=== PATIENT | female | born 1935 | race Caucasian/White ===

== ENCOUNTER → 2017-03-15 | Outpatient (CLI) | payer MEDICARE, BC ==
--- NOTE | 2017-03-15 22:08 | US ---
EXAMINATION TYPE: US thyroid st tissue head/neck DATE OF EXAM: 03/15/2017 3:06 PM COMPARISON: NONE CLINICAL HISTORY: 82-year-old female E04.1 Thyroid nodule. TECHNIQUE: Multiple sonographic images of the thyroid gland are obtained. FINDINGS: GLAND SIZE: Right Lobe: 4.8 x 2.0 x 2.3 cm Overall Parenchyma: heterogenous Left Lobe: 4.0 x 1.4 x 1.2 cm Overall Parenchyma: heterogeneous Isthmus Thickness: 0.7 cm NODULES RIGHT: # of nodules measured on right: 3 of multiple nodules 1. 0.4 X 0.3 x 0.4 cm cyst at the midpole. Prior size: not seen 2. 0.5 x 0.7 x 0.5cm hyperechoic solid nodule at the mid lower pole with well-defined margins. . Thi s nodule is wider than tall and shows no intranodular vascularity. Prior size: NA 3. 0.3 X 0.5 x 0.5 cm hyperechoic solid nodule at the lateral lower pole with well-defined margins. This nodule is wide as is tall and shows no intranodular vascularity. Prior size: NA 4. The previously seen 1.4 and 1.5 cm nodules are no longer identified. AIRLINE HOSTESS NOTES: Inferior pole/Right isthmus is nodular in appearance but a discrete nodule is not seen at this time in longitudinal view. LEFT: # of nodules measured on left: 4 of multiple nodules 1. 0.8 X 0.6 x 0.7 cm hypoechoic mixed nodule at the upper pole with well-defined margins. This no dule is taller than wide and shows intranodular vascularity. Prior size: 0.8 x 0.7 x 0.7 cm 2. 0.7 X 0.5 x 0.6 cm hyperechoic solid nodule with a coarse calcifications. This nodule is taller t mariano wide and shows no intranodular vascularity. Prior size: 0.9 x 0.7 x 0.5 cm 3. 0.7 X 0.7 x 0.4 cm hypoechoic solid nodule at the mid lateral pole with well-defined margins. Th is nodule is wider than tall and shows no intranodular vascularity. Prior size: NA 4. 0.9 X 0.7 x 0.6 cm with mixed solid and cystic nodule at the lower pole with well-defined margins . This nodule is wider than tall and shows no intranodular vascularity. Prior size: 0.7 x 0.7 x 0.7 cm ISTHMUS: # of nodules measured in the isthmus: 0 Bilateral neck scanned, no evidence of lymphadenopathy. IMPRESSION: 1. Multinodular thyroid gland. 2. Three subcentimeter nodules on the right appear to be new, one of which is a cyst. The previous 1. 4 and 1.5 cm right sided nodules are not apparent on the current study. 3. On the left, there is a new 7 mm solid nodule and a mixed lower pole nodule now measures 9 mm vers us 7 mm, previously. The other 2 subcentimeter nodules are stable.
== END ==
LOC: RADUSWWP 14:10
PROVIDERS: ATTEND Otolaryngology
DX: E04.2 Nontoxic multinodular goiter (principal)
CPT/HCPCS: 76536

== ENCOUNTER 2017-06-16 16:05 | Emergency (ER) | payer MEDICARE, BC ==
[2017-06-16 16:15] VITALS: TEMP 97.8
[2017-06-16] MEDS ORDERED: SODIUM CHLORIDE 0.9% 500 ML IV STA (16:40)
--- NOTE | 2017-06-16 16:43 | ED ---
General Adult HPI - General Chief complaint: Recheck/Abnormal Lab/Rx Stated complaint: low blood pressure-sent by Time Seen by Provider: 06/16/17 16:29 Source: patient, RN notes reviewed Mode of arrival: ambulatory Limitations: no limitations - History of Present Illness Initial comments: 82-year-old female who presents emergency room today with chief complaint of cough congestion over the last week and a half. She does admit that she began having some clear rhinorrhea. She states that her last for 5 days she's had some cough congestion that's been having some yellow sputum production. Patient states that she has begun feeling somewhat rundown. She states that she has had decreased energy. She states she noticed her blood pressure was low at home. She states she does take blood pressure medication of lisinopril. She denies any other complaints or symptoms at this time. Patient denies any recent fever, chills, shortness of breath, chest pain, back pain, abdominal pain , nausea or vomiting, numbness or tingling, dysuria or hematuria, constipation or diarrhea, headaches or visual changes, or any other complaints. - Related Data Home Medications Medication Instructions Recorded Confirmed Aspirin EC [Ecotrin Low Dose] 81 mg PO DAILY 08/09/16 06/16/17 Levothyroxine Sodium [Tirosint] 50 mcg PO DAILY 08/09/16 06/16/17 Lisinopril [Zestril] 10 mg PO DAILY 08/09/16 06/16/17 Biotin 10,000 mcg PO DAILY 06/16/17 06/16/17 Cholecalciferol (Vitamin D3) 10,000 unit PO DAILY 06/16/17 06/16/17 [Vitamin D3] Propylene Glycol/Peg 400/Pf 1 drop BOTH EYES BID 06/16/17 06/16/17 [Systane 0.3-0.4% Eye Drops] Previous Rx's Medication Instructions Recorded Albuterol Inhaler [Ventolin Hfa 1 - 2 puff INHALATION Q4-6H PRN #1 06/16/17 Inhaler] inhaler Amoxicillin/Potassium Clav 1 each PO Q12HR #20 tab 06/16/17 [Augmentin 875-125 Tablet] Allergies Allergy/AdvReac Type Severity Reaction Status Date / Time mold Allergy Itching Verified 06/16/17 16:57 nickel Allergy Rash/Hives Verified 06/16/17 16:57 house dust AdvReac Wheezing Verified 06/16/17 16:15 thimerosal AdvReac Migraine/Muscle Verified 06/16/17 16:15 Aches Preservative in eye drops AdvReac Migraine/Muscle Uncoded 06/16/17 16:59 Aches Review of Systems ROS Statement: Those systems with pertinent positive or pertinent negative responses have been documented in the HPI. ROS Other: All systems not noted in ROS Statement are negative. 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 eye surgery at [facility], vertigo History of Any Multi-Drug Resistant Organisms: None Reported Past Surgical History: Cholecystectomy, Hysterectomy, Tonsillectomy Additional Past Surgical History / Comment(s): bilateral mastectomy, bilat. cataract removed Past Anesthesia/Blood Transfusion Reactions: No Reported Reaction Past Psychological History: PTSD Smoking Status: Never smoker Past Alcohol Use History: Occasional Past Drug Use History: None Reported - Past Family History Father Family Medical History: Coronary Artery Disease (CAD) Brother(s) Family Medical History: CVA/TIA Mother Additional Family Medical History / Comment(s): [place] Dx General Exam Limitations: no limitations Course Vital Signs 06/16/17 06/16/17 06/16/17 16:12 16:37 16:55 Temperature 97.8 F Pulse Rate 71 Pulse Rate [ 49 L Apical] Respiratory 20 Rate Blood Pressure 171/76 141/63 O2 Sat by Pulse 96 Oximetry 06/16/17 06/16/17 18:22 19:05 Temperature Pulse Rate 83 87 Pulse Rate [ Apical] Respiratory 16 18 Rate Blood Pressure 142/58 O2 Sat by Pulse 98 98 Oximetry EKG Findings - EKG Comments: EKG Findings:: EKG formed at 1641: Shows sinus rhythm with a sinus arrhythmia at 81 beats per minute. ME interval is 218. QRS is 84. QT/QTC is 506/587. There is no acute ST change. There is a prolonged QT. Second EKG performed at 1704: Shows a sinus rhythm with sinus arrhythmia at 86 beats per minute. ME interval is 210. QRS is 80. QT/QTc is 400/450. No acute ST changes. Medical Decision Making - Medical Decision Making Patient's labs reviewed and are unremarkable. Case was discussed with attending physician who saw patient at bedside. Patient's EKG shows sinus arrhythmia no acute changes. Patient feeling well here in the emergency room does admit to cough congestion. Chest x-rays negative for any acute abnormalities. Patient will be placed on antibiotics cover for a bronchitis infection." The family doctor over the next 2 days. Advised return here to the emergency room if any symptoms increase or worsen or for any other concerns. - Lab Data Result diagrams: 06/16/17 16:55 06/16/17 16:55 Lab Results 06/16/17 06/16/17 06/16/17 Range/Units 16:55 16:55 16:55 WBC 5.8 (3.8-10.6) k/uL RBC 4.20 (3.80-5.40) m/uL Hgb 13.3 (11.4-16.0) gm/dL Hct 40.0 (34.0-46.0) % MCV 95.2 (80.0-100.0) fL MCH 31.6 (25.0-35.0) pg MCHC 33.2 (31.0-37.0) g/dL RDW 14.2 (11.5-15.5) % Plt Count 166 (150-450) k/uL Neutrophils % 50 % Lymphocytes % 38 % Monocytes % 6 % Eosinophils % 3 % Basophils % 0 % Neutrophils # 2.9 (1.3-7.7) k/uL Lymphocytes # 2.2 (1.0-4.8) k/uL Monocytes # 0.3 (0-1.0) k/uL Eosinophils # 0.2 (0-0.7) k/uL Basophils # 0.0 (0-0.2) k/uL PT (9.0-12.0) sec INR (<1.2) APTT (22.0-30.0) sec Sodium 139 (137-145) mmol/L Potassium 4.7 (3.5-5.1) mmol/L Chloride 105 (98-107) mmol/L Carbon Dioxide 25 (22-30) mmol/L Anion Gap 9 mmol/L BUN 28 H (7-17) mg/dL Creatinine 1.00 (0.52-1.04) mg/dL Est GFR (MDRD) Af Amer >60 (>60 ml/min/1.73 sqM) Est GFR (MDRD) Non-Af 53 (>60 ml/min/1.73 sqM) Glucose 77 (74-99) mg/dL Calcium 9.6 (8.4-10.2) mg/dL Magnesium 1.9 (1.6-2.3) mg/dL Total Bilirubin 0.4 (0.2-1.3) mg/dL AST 25 (14-36) U/L ALT 26 (9-52) U/L Alkaline Phosphatase 63 (38-126) U/L Total Creatine Kinase 111 (30-135) U/L CK-MB (CK-2) <0.2 (0.0-2.4) ng/mL CK-MB (CK-2) Rel Index Troponin I <0.012 (0.000-0.034) ng/mL Total Protein 6.5 (6.3-8.2) g/dL Albumin 4.0 (3.5-5.0) g/dL Urine Color Urine Appearance (Clear) Urine pH (5.0-8.0) Ur Specific [place] (1.001-1.035) Urine Protein (Negative) Urine Glucose (UA) (Negative) Urine Ketones (Negative) Urine Blood (Negative) Urine Nitrite (Negative) Urine Bilirubin (Negative) Urine Urobilinogen (<2.0) mg/dL Ur Leukocyte Esterase (Negative) Urine RBC (0-5) /hpf Urine WBC (0-5) /hpf Urine WBC Clumps (None) /hpf Urine Bacteria (None) /hpf 06/16/17 06/16/17 Range/Units 16:55 18:24 WBC (3.8-10.6) k/uL RBC (3.80-5.40) m/uL Hgb (11.4-16.0) gm/dL Hct (34.0-46.0) % MCV (80.0-100.0) fL MCH (25.0-35.0) pg MCHC (31.0-37.0) g/dL RDW (11.5-15.5) % Plt Count (150-450) k/uL Neutrophils % % Lymphocytes % % Monocytes % % Eosinophils % % Basophils % % Neutrophils # (1.3-7.7) k/uL Lymphocytes # (1.0-4.8) k/uL Monocytes # (0-1.0) k/uL Eosinophils # (0-0.7) k/uL Basophils # (0-0.2) k/uL PT 10.2 (9.0-12.0) sec INR 1.0 (<1.2) APTT 21.6 L (22.0-30.0) sec Sodium (137-145) mmol/L Potassium (3.5-5.1) mmol/L Chloride (98-107) mmol/L Carbon Dioxide (22-30) mmol/L Anion Gap mmol/L BUN (7-17) mg/dL Creatinine (0.52-1.04) mg/dL Est GFR (MDRD) Af Amer (>60 ml/min/1.73 sqM) Est GFR (MDRD) Non-Af (>60 ml/min/1.73 sqM) Glucose (74-99) mg/dL Calcium (8.4-10.2) mg/dL Magnesium (1.6-2.3) mg/dL Total Bilirubin (0.2-1.3) mg/dL AST (14-36) U/L ALT (9-52) U/L Alkaline Phosphatase (38-126) U/L Total Creatine Kinase (30-135) U/L CK-MB (CK-2) (0.0-2.4) ng/mL CK-MB (CK-2) Rel Index Troponin I (0.000-0.034) ng/mL Total Protein (6.3-8.2) g/dL Albumin (3.5-5.0) g/dL Urine Color Light Yellow Urine Appearance Clear (Clear) Urine pH 5.5 (5.0-8.0) Ur Specific [place] 1.004 (1.001-1.035) Urine Protein Negative (Negative) Urine Glucose (UA) Negative (Negative) Urine Ketones Negative (Negative) Urine Blood Negative (Negative) Urine Nitrite Negative (Negative) Urine Bilirubin Negative (Negative) Urine Urobilinogen <2.0 (<2.0) mg/dL Ur Leukocyte Esterase Small H (Negative) Urine RBC <1 (0-5) /hpf Urine WBC 4 (0-5) /hpf Urine WBC Clumps Rare H (None) /hpf Urine Bacteria Occasional H (None) /hpf Disposition Clinical Impression: Acute bronchitis Disposition: HOME SELF-CARE Condition: Good Instructions: Acute Bronchitis (ED) Additional Instructions: Please use medication as discussed. Please follow-up with family doctor in the next 2 days of symptoms have not improved. Please return to emergency room if the symptoms increase or worsen or for any other concerns. Prescriptions: Albuterol Inhaler [Ventolin Hfa Inhaler] 1 - 2 puff INHALATION Q4-6H PRN #1 inhaler PRN Reason: Cough Amoxicillin/Potassium Clav [Augmentin 875-125 Tablet] 1 each PO Q12HR #20 tab Referrals: Lemuel Gray III, MD [Primary Care Provider] - 1-2 days Time of Disposition: 19:25
[2017-06-16 17:11] LABS: Basophils % (A) 0 %; CH 31.9; CHCM 33.6; Eosinophils # (A) 0.2 k/uL (0-0.7); Eosinophils % (A) 3 %; HGB 13.3 gm/dL (11.4-16.0); Luc # (Auto) 0.15; Luc % (Auto) 3; Lymphocytes # (A) 2.2 k/uL (1.0-4.8); Lymphocytes % (A) 38 %; MCH 31.6 pg (25.0-35.0); MCHC 33.2 g/dL (31.0-37.0); MCV 95.2 fL (80.0-100.0); Mean Platelet Volume 8.4; Monocytes # (A) 0.3 k/uL (0-1.0); Monocytes % (A) 6 %; Neutrophils # (A) 2.9 k/uL (1.3-7.7); Neutrophils % (A) 50 %; RDW 14.2 % (11.5-15.5); WBC 5.8 k/uL (3.8-10.6); WBC (Perox) 5.64
[2017-06-16 17:20] LABS: ALT 26 U/L (9-52); AST 25 U/L (14-36); Alkaline Phosphatase 63 U/L (38-126); Anion Gap 9 mmol/L; Blood Urea Nitrogen 28 mg/dL (7-17); Calcium 9.6 mg/dL (8.4-10.2); Carbon Dioxide 25 mmol/L (22-30); Chloride 105 mmol/L (98-107); Glucose 77 mg/dL (74-99); Magnesium 1.9 mg/dL (1.6-2.3); Non-African American GFR(MDRD) 53 (>60 ml/min/1.73 sqM); Potassium 4.7 mmol/L (3.5-5.1); Sodium 139 mmol/L (137-145); Total Bilirubin 0.4 mg/dL (0.2-1.3); Total Protein 6.5 g/dL (6.3-8.2)
[2017-06-16 17:29] LABS: Prothrombin Time 10.2 sec (9.0-12.0)
[2017-06-16 17:32] LABS: Creatine Kinase 111 U/L (30-135)
[2017-06-16 17:34] LABS: Partial Thromboplastin Time 21.6 sec (22.0-30.0)
[2017-06-16 17:45] LABS: Creatine Kinase MB <0.2 ng/mL (0.0-2.4); Troponin I <0.012 ng/mL (0.000-0.034)
[2017-06-16 18:32] LABS: Appearance,Urine Clear (Clear); Bacteria,Urine Occasional /hpf; Bilirubin,Urine Negative (Negative); Glucose,Urine (UA) Negative (Negative); Ketones,Urine Negative (Negative); Leukocyte Esterase,Urine Small (Negative); Nitrite,Urine Negative (Negative); PH, Urine 5.5 (5.0-8.0); Particle Count 1335; Protein,Urine Negative (Negative); RBC,Urine <1 /hpf (0-5); Specific Gravity,Urine 1.004 (1.001-1.035); UA Billing (MACRO vs. MICRO) MICRO; Urobilinogen,Urine <2.0 mg/dL (<2.0); WBC,Urine 4 /hpf (0-5)
[2017-06-16 19:06] VITALS: BP 142/58; PULSE 87; RESP 18
--- NOTE | 2017-06-16 20:51 | XR ---
EXAMINATION TYPE: XR chest 2V DATE OF EXAM: 06/16/2017 COMPARISON: 08/09/2016 HISTORY: Respiratory infection TECHNIQUE: Frontal and lateral views of the chest are obtained. FINDINGS: There is no heart failure nor confluent pneumonic infiltrate. Thoracic aorta is atheromato us. There are chest leads. There is no pleural effusion. There is spurring in the thoracic spine. The re are clips apparently from left mastectomy. IMPRESSION: No active cardiopulmonary disease. Atheromatous aorta. No change.
== END 2017-06-16 19:37 | disposition home or self-care (01) ==
LOC: EC 16:05
DX: J20.9 Acute bronchitis, unspecified (principal); I10 Essential (primary) hypertension; E07.9 Disorder of thyroid, unspecified; M19.90 Unspecified osteoarthritis, unspecified site; Z87.01 Personal history of pneumonia (recurrent); Z86.73 Personal history of transient ischemic attack (TIA), and cerebral infarction without residual deficits; Z79.82 Long term (current) use of aspirin; Z79.899 Other long term (current) drug therapy; Z91.048 Other nonmedicinal substance allergy status
CPT/HCPCS: 36415; 71020; 80053; 81001; 82550; 82553; 83735; 84484; 85025; 85610; 85730; 93005; 96360; 99283

== ENCOUNTER → 2017-10-12 | Outpatient (CLI) | payer MEDICARE, BC ==
--- NOTE | 2017-10-12 14:14 | US ---
EXAMINATION TYPE: US thyroid st tissue head/neck DATE OF EXAM: 10/12/2017 COMPARISON: Thyroid ultrasound March 15, 2017 CLINICAL HISTORY: E04.1 Thyroid Nodule. F/U GLAND SIZE: Right Lobe: 3.8 x 1.5 x 1.8 cm Overall Parenchyma: Grossly heterogeneous Left Lobe: 3.9 x 1.5 x 1.2 cm Overall Parenchyma: Grossly heterogeneous Isthmus Thickness: 0.6 cm NODULES RIGHT: # of nodules measured on right: 0 LEFT: # of nodules measured on left: 1 1. 0.9 X 0.8 x 0.7 cm calcified nodule at the upper pole with poorly defined margins; This nodule is wider than tall and shows no intranodular vascularity. Prior size: 0.7 x 0.5 x 0.6 cm ISTHMUS: # of nodules measured in the isthmus: 0 Bilateral neck scanned, no evidence of lymphadenopathy. Bilateral grossly heterogeneous thyroid favor ed over multiple nodules/ hypervascularity bilateral/ calcified nodule on left Heterogeneous hypervascular slightly small thyroid gland redemonstrated with small nodule left thyroi d is once again marked by technologist. IMPRESSION: Overall stable findings, markedly heterogeneous hypervascular slightly small thyroid gland without ne w suspicious greater than 1 cm solid or cystic nodule.
== END | disposition home or self-care (01) ==
LOC: RADUSWWP 13:34
PROVIDERS: ATTEND Otolaryngology
DX: E04.1 Nontoxic single thyroid nodule (principal)
CPT/HCPCS: 76536

== ENCOUNTER 2018-06-07 08:29 | Emergency (ER) | payer MEDICARE, BC ==
[2018-06-07] MEDS ORDERED: SODIUM CHLORIDE 0.9% 500 ML IV STA (08:32)
--- NOTE | 2018-06-07 08:40 | ED ---
General Adult HPI - General Stated complaint: poss TIA Time Seen by Provider: 06/07/18 08:29 Source: RN notes reviewed - History of Present Illness Initial comments: This is an 83-year-old female who presents to the emergency department with sudden onset of right sided facial droop slurred speech and right-sided paralysis. Patient states she was up before that walking around taking her medicines and she was fine and all of a sudden she didn't feel right and then she slowly fell to the floor. When EMS arrived she had no movement of the right arm or right leg and she had significant slurred speech and facial droop on the right. Patient denies any headache. Patient states she had a little bit of chest pressure earlier but it is gone now. Patient denies any difficulty breathing or shortness of breath. Patient denies any abdominal pain patient denies any nausea or vomiting. Patient does state that she is speech to be slurred and her right side of her body is weaker. Patient denies any other symptoms at this time. - Related Data Home Medications Medication Instructions Recorded Confirmed Aspirin EC [Ecotrin Low Dose] 81 mg PO DAILY 08/09/16 06/07/18 Levothyroxine Sodium [Tirosint] 50 mcg PO DAILY 08/09/16 06/07/18 Lisinopril [Zestril] 10 mg PO DAILY 08/09/16 06/07/18 Fluocinonide 0.05% [Lidex 0.05% 15 applic TOPICAL DAILY 06/07/18 06/07/18 cream] Hydrocortisone Cream 1 applic TOPICAL BID 06/07/18 06/07/18 [Hydrocortisone 2.5% Cream] Ketoconazole 2% Cream [Nizoral 2%] 1 applic TOPICAL DAILY 06/07/18 06/07/18 Testosterone [Androgel 1.62% Gel 1 packet TOPICAL DIRECTED 06/07/18 06/07/18 Packet] Allergies Allergy/AdvReac Type Severity Reaction Status Date / Time mold Allergy Itching Verified 06/07/18 09:46 nickel Allergy Rash/Hives Verified 06/07/18 09:46 brimonidine AdvReac Unknown Verified 06/07/18 09:46 difluprednate AdvReac Unknown Verified 06/07/18 09:46 house dust AdvReac Wheezing Verified 06/07/18 09:46 Dnzanub-Fbr-Oya Reductase AdvReac Unknown Verified 06/07/18 09:46 Inhibitor thimerosal AdvReac Migraine/Muscle Verified 06/07/18 09:46 Aches Preservative in eye drops AdvReac Migraine/Muscle Uncoded 06/07/18 09:00 Aches Review of Systems ROS Statement: Those systems with pertinent positive or pertinent negative responses have been documented in the HPI. ROS Other: All systems not noted in ROS Statement are negative. 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 eye surgery at [facility], vertigo History of Any Multi-Drug Resistant Organisms: None Reported Past Surgical History: Cholecystectomy, Hysterectomy, Tonsillectomy Additional Past Surgical History / Comment(s): bilateral mastectomy, bilat. cataract removed Past Anesthesia/Blood Transfusion Reactions: No Reported Reaction Past Psychological History: PTSD Smoking Status: Never smoker Past Alcohol Use History: Occasional Past Drug Use History: None Reported - Past Family History Father Family Medical History: Coronary Artery Disease (CAD) Brother(s) Family Medical History: CVA/TIA Mother Additional Family Medical History / Comment(s): [place] Dx General Exam - General Exam Comments Initial Comments: GENERAL: Patient is well-developed and well-nourished. Patient is nontoxic and well- hydrated and is in no acute distress. ENT: Neck is soft and supple. No significant lymphadenopathy is noted. Oropharynx is clear. Moist mucous membranes. Neck has full range of motion without eliciting any pain. There is no thyroid enlargement and no masses were felt. EYES: The sclera were anicteric and conjunctiva were pink and moist. Extraocular movements were intact and pupils were equal round and reactive to light. Eyelids were unremarkable. PULMONARY: Unlabored respirations. Good breath sounds bilaterally. No audible rales rhonchi or wheezing was noted. CARDIOVASCULAR: There is a regular rate and rhythm without any murmurs gallops or rubs. Femoral pulses are equal bilaterally ABDOMEN: Soft and nontender with normal bowel sounds. No palpable organomegaly was noted. There is no palpable pulsatile mass. SKIN: Skin is clear with no lesions or rashes and otherwise unremarkable. NEUROLOGIC: Patient is alert and oriented x3. Patient has obvious right-sided facial droop and slurred speech. 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 Patient is able to bend her knee slightly on the right and only has slight plantar and dorsiflexion when compared to the left. MUSCULOSKELETAL: Normal extremities with adequate strength and full range of motion. No lower extremity swelling or edema. No calf tenderness. LYMPHATICS: No significant lymphadenopathy is noted PSYCHIATRIC: Normal psychiatric evaluation. Normal interpersonal interactions appears functionally intact in deals appropriately with others. No signs of depression. No signs of anxiety. No delusions. No hallucinations. Course Vital Signs 06/07/18 06/07/18 06/07/18 08:30 08:45 09:00 Temperature 97.0 F L Pulse Rate 106 H 109 H 108 H Respiratory 16 16 16 Rate Blood Pressure 157/74 167/74 138/60 O2 Sat by Pulse 99 100 99 Oximetry 06/07/18 06/07/18 09:15 09:30 Temperature Pulse Rate 104 H 107 H Respiratory 16 16 Rate Blood Pressure 152/65 135/61 O2 Sat by Pulse 100 98 Oximetry Medical Decision Making - Medical Decision Making EKG shows sinus tachycardia at 106 bpm VA interval is 216 QRS is 106 QT interval 344 QTC is 456. Patient's EKG shows no acute abnormalities. I compared this EKG with old EKG and there is no obvious changes Patient's CT of the brain and the CTA of the head neck. No abnormalities are seen on the CT of the brain. The neuro interventional was called and the neuro interventional states he wanted TPA and TPA was given to the patient after her consent. Patient was in agreement with going to [facility]. After all arrangements were made to go to [facility] daughter convince patient to go to [facility] the neuro interventional states at that point got on the robot and try to convince the patient to go to [facility] which she wanted to do what her daughter recommended. So we are now transferring the patient to [facility]. - Lab Data Result diagrams: 06/07/18 08:30 06/07/18 08:30 Lab Results 06/07/18 06/07/18 06/07/18 Range/Units 08:30 08:30 08:30 WBC 10.0 (3.8-10.6) k/uL RBC 4.46 (3.80-5.40) m/uL Hgb 13.3 (11.4-16.0) gm/dL Hct 42.3 (34.0-46.0) % MCV 94.7 (80.0-100.0) fL MCH 29.7 (25.0-35.0) pg MCHC 31.4 (31.0-37.0) g/dL RDW 13.5 (11.5-15.5) % Plt Count 182 (150-450) k/uL Neutrophils % 47 % Lymphocytes % 45 % Monocytes % 3 % Eosinophils % 2 % Basophils % 0 % Neutrophils # 4.7 (1.3-7.7) k/uL Lymphocytes # 4.5 (1.0-4.8) k/uL Monocytes # 0.3 (0-1.0) k/uL Eosinophils # 0.2 (0-0.7) k/uL Basophils # 0.0 (0-0.2) k/uL PT (9.0-12.0) sec INR (<1.2) APTT (22.0-30.0) sec Sodium 139 (137-145) mmol/L Potassium 4.0 (3.5-5.1) mmol/L Chloride 109 H (98-107) mmol/L Carbon Dioxide 20 L (22-30) mmol/L Anion Gap 10 mmol/L BUN 17 (7-17) mg/dL Creatinine 1.03 (0.52-1.04) mg/dL Est GFR (CKD-EPI)AfAm 59 (>60 ml/min/1.73 sqM) Est GFR (CKD-EPI)NonAf 51 (>60 ml/min/1.73 sqM) Glucose 135 H (74-99) mg/dL POC Glucose (mg/dL) (75-99) mg/dL POC Glu Veterinarian Small Animal ID Calcium 9.6 (8.4-10.2) mg/dL Total Bilirubin 0.6 (0.2-1.3) mg/dL AST 27 (14-36) U/L ALT 27 (9-52) U/L Alkaline Phosphatase 72 (38-126) U/L Total Creatine Kinase 80 (30-135) U/L CK-MB (CK-2) 1.6 (0.0-2.4) ng/mL CK-MB (CK-2) Rel Index 2.0 Troponin I 0.039 H* (0.000-0.034) ng/mL Total Protein 6.3 (6.3-8.2) g/dL Albumin 3.9 (3.5-5.0) g/dL 06/07/18 06/07/18 Range/Units 08:30 08:30 WBC (3.8-10.6) k/uL RBC (3.80-5.40) m/uL Hgb (11.4-16.0) gm/dL Hct (34.0-46.0) % MCV (80.0-100.0) fL MCH (25.0-35.0) pg MCHC (31.0-37.0) g/dL RDW (11.5-15.5) % Plt Count (150-450) k/uL Neutrophils % % Lymphocytes % % Monocytes % % Eosinophils % % Basophils % % Neutrophils # (1.3-7.7) k/uL Lymphocytes # (1.0-4.8) k/uL Monocytes # (0-1.0) k/uL Eosinophils # (0-0.7) k/uL Basophils # (0-0.2) k/uL PT 9.7 (9.0-12.0) sec INR 1.0 (<1.2) APTT 22.2 (22.0-30.0) sec Sodium (137-145) mmol/L Potassium (3.5-5.1) mmol/L Chloride (98-107) mmol/L Carbon Dioxide (22-30) mmol/L Anion Gap mmol/L BUN (7-17) mg/dL Creatinine (0.52-1.04) mg/dL Est GFR (CKD-EPI)AfAm (>60 ml/min/1.73 sqM) Est GFR (CKD-EPI)NonAf (>60 ml/min/1.73 sqM) Glucose (74-99) mg/dL POC Glucose (mg/dL) 124 H (75-99) mg/dL POC Glu Veterinarian Small Animal ID Salgat, Kalpana Calcium (8.4-10.2) mg/dL Total Bilirubin (0.2-1.3) mg/dL AST (14-36) U/L ALT (9-52) U/L Alkaline Phosphatase (38-126) U/L Total Creatine Kinase (30-135) U/L CK-MB (CK-2) (0.0-2.4) ng/mL CK-MB (CK-2) Rel Index Troponin I (0.000-0.034) ng/mL Total Protein (6.3-8.2) g/dL Albumin (3.5-5.0) g/dL Critical Care Time Critical Care Time: Yes Total Critical Care Time: 35 Disposition Clinical Impression: Cerebrovascular accident Disposition: OTHER INSTITUTION NOT DEFINED Referrals: Jeremi Lynn MD [Primary Care Provider] - 1-2 days Time of Disposition: 09:30 - Out of Hospital Transfer - Req. Specs Out of Hospital Transfer - Requested Specifics: Other Emergency Center ([facility])
[2018-06-07 08:55] LABS: Basophils % (A) 0 %; Eosinophils # (A) 0.2 k/uL (0-0.7); Eosinophils % (A) 2 %; HCT 42.3 % (34.0-46.0); HGB 13.3 gm/dL (11.4-16.0); Lymphocytes # (A) 4.5 k/uL (1.0-4.8); Lymphocytes % (A) 45 %; MCH 29.7 pg (25.0-35.0); MCHC 31.4 g/dL (31.0-37.0); MCV 94.7 fL (80.0-100.0); Mean Platelet Volume 7.4; Monocytes # (A) 0.3 k/uL (0-1.0); Monocytes % (A) 3 %; Neutrophils # (A) 4.7 k/uL (1.3-7.7); Neutrophils % (A) 47 %; Platelet Count 182 k/uL (150-450); RBC 4.46 m/uL (3.80-5.40); RDW 13.5 % (11.5-15.5)
--- NOTE | 2018-06-07 08:55 | CT ---
EXAMINATION TYPE: CT brain wo con for TPA DATE OF EXAM: 06/07/2018 COMPARISON: 08/09/2016 HISTORY: 83 year-old female right facial droop TECHNIQUE: Examination was done in axial plane without intravenous contrast. Coronal and sagittal r econstructions performed. CT DLP: 1061 mGycm Automated exposure control for dose reduction was used. 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 This causes limitat ions at 4 contiguous slice levels. Otherwise, benign basal ganglionic calcifications and old lacunar infarct anterior left basal ganglia . Mild patchy white matter hypodensity suggests changes of chronic small vessel ischemic disease. Allowing for the artifacts, no evidence of acute intracranial hemorrhage, acute ischemic changes, ma ss, mass-effect, or extra-axial fluid collection. There is no effacement of cerebral sulci or basal subarachnoid cisterns. There is no hydrocephalus. There is no midline shift. Mace-white matter dis tinction is preserved. Suspect prior FESS. Mild mucosal thickening ethmoid air cells. Orbits and globes are intact. Cerumen left external auditory canal. Mastoid air cells well pneumatized. 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 Otherwise, no acute intracranial abnormality seen.
[2018-06-07 09:00] VITALS: TEMP 97
[2018-06-07 09:00] LABS: Albumin 3.9 g/dL (3.5-5.0); Calcium 9.6 mg/dL (8.4-10.2); Total Bilirubin 0.6 mg/dL (0.2-1.3); Total Protein 6.3 g/dL (6.3-8.2)
[2018-06-07] MEDS ORDERED: ALTEPLASE BOLUS 6 MG in EMPTY SYRINGE 1 SYR IV STA (09:02)
[2018-06-07] MEDS ORDERED: ALTEPLASE 50 MG in EMPTY BAG 1 BAG IV STA (09:02)
[2018-06-07] MEDS ORDERED: tPA (Alteplase) PER PHARMACY 1 EACH MISC MISCELLANE PRN (09:02)
[2018-06-07 09:03] LABS: Prothrombin Time 9.7 sec (9.0-12.0)
[2018-06-07] MEDS ORDERED: ALTEPLASE BOLUS 5 MG in EMPTY SYRINGE 1 SYR IV STA (09:05)
[2018-06-07] MEDS ORDERED: ALTEPLASE 48 MG in EMPTY BAG 1 BAG IV STA (09:05)
[2018-06-07 09:10] LABS: Partial Thromboplastin Time 22.2 sec (22.0-30.0)
[2018-06-07 09:21] LABS: Glucose,Whole Blood 124 mg/dL (75-99)
[2018-06-07 09:22] LABS: Creatine Kinase MB 1.6 ng/mL (0.0-2.4)
[2018-06-07 09:25] LABS: Troponin I 0.039 ng/mL (0.000-0.034)
--- NOTE | 2018-06-07 09:30 | CT ---
EXAMINATION TYPE: CT angio head neck DATE OF EXAM: 06/07/2018 COMPARISON: Correlation CT brain same day HISTORY: 83-year-old female right facial droop TECHNIQUE: Contiguous axial scanning of the head and neck performed with IV Contrast, patient injecte d with 65 mL of Isovue 370. Coronal/sagittal MIP reconstructions performed. 3-D reconstructions gener ated on a dedicated independent workstation. CT DLP: mGycm Automated exposure control for dose reduction was used. FINDINGS: Neck: Biapical pleural-parenchymal scarring. Heterogeneous thyroid gland with small nodules. This could be better assessed with dedicated thyroid ultrasound if indicated. Retropectoral bilateral breast implan ts. Mild atherosclerotic arch calcifications. Conventional arch vessel branching anatomy. There may be moderate atherosclerotic narrowing at the origin of the left vertebral artery. The left vertebral artery is slightly more dominant than the right. The right common carotid artery is patent. There is mild to moderate atherosclerotic plaque and calcification at the right carotid bulb causing a mild, approximately 30% stenosis. Tortuous mid to upper right internal carotid artery. The left common carotid artery is patent with mild eccentric atherosclerotic calcification distally. There is mild atherosclerotic calcification eccentrically in the left carotid bulb with mild, less th an 25% atherosclerotic narrowing. Head: Prior coil mass in the region of the right carotid terminus making assessment at this level nondiagno stic. Remainder of the anterior and posterior circulations are patent with persistent origin of the bilateral posterior cerebral arteries. No new aneurysmal changes seen. Mild atherosclerotic calc ifications in the carotid siphons. The vertebral and basilar artery and visualized portions of the in ternal carotid arteries are patent. IMPRESSION: NECK: 1. 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 THIS CAUSES MILD, APPROXIMATELY 30% STENOSIS AT THE PROXIMAL RIGHT ICA AND MILD, LESS THAN 25% STENOSIS AT THE PROXIMAL LEFT ICA. NO HEM ODYNAMICALLY SIGNIFICANT STENOSIS APPRECIATED. 2. THERE MAY BE A MODERATE ATHEROSCLEROTIC NARROWING AT THE ORIGIN OF THE LEFT VERTEBRAL ARTERY. HEAD: 1. THE REGION OF THE RIGHT CAROTID TERMINUS IS NONDIAGNOSTIC DUE TO ARTIFACT FROM THE PATIENT'S COIL MASS. OTHERWISE, ELSEWHERE, THERE IS NO LARGE VESSEL ARTERIAL OCCLUSION OR ANEURYSMAL CHANGE SEEN. 2. 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
--- NOTE | 2018-06-07 09:36 | XR ---
EXAMINATION TYPE: XR chest 1V DATE OF EXAM: 06/07/2018 COMPARISON: 06/16/2017 HISTORY: 83-year-old female with stroke symptoms, altered mental status, confusion TECHNIQUE: Single frontal view of the chest is obtained. FINDINGS: Patient is obliquely towards the right and rotated towards the left. Heart upper limits of normal in size. Aorta and pulmonary vasculature within normal limits. Right breast surgical clips and additiona l surgical clips in the upper abdomen. Surgical clips in the left axilla. Mild interstitial prominenc e. Hazy mid and lower lung densities related to overlying soft tissue. No definite consolidation or p leural effusion. IMPRESSION: Limited rotated exam. No definite acute process.
[2018-06-07 10:02] VITALS: RESP 18
[2018-06-07 10:28] VITALS: BP 115/56; PULSE 102
== END 2018-06-07 10:20 | disposition other institution (70) ==
LOC: EC 08:29 → SUPCPDRO 08:29 → EC 10:20
DX: I63.9 Cerebral infarction, unspecified (principal); I10 Essential (primary) hypertension; E07.9 Disorder of thyroid, unspecified; Z85.3 Personal history of malignant neoplasm of breast; Z90.13 Acquired absence of bilateral breasts and nipples; Z90.49 Acquired absence of other specified parts of digestive tract; Z90.710 Acquired absence of both cervix and uterus; Z79.52 Long term (current) use of systemic steroids; Z79.82 Long term (current) use of aspirin; Z79.899 Other long term (current) drug therapy; Z88.8 Allergy status to other drugs, medicaments and biological substances; Z91.048 Other nonmedicinal substance allergy status
CPT/HCPCS: 36415; 93005; 80053; 82550; 82553; 84484; 85025; 85610; 85730; 71045; 70496; 70450; 70498; 99291; 37195; J2997; Q9967